=== PATIENT | male | born 1965 | race Two or more races ===

== ENCOUNTER 2019-02-02 09:29 | Day surgery (SDC) | payer OTHER ==
[2019-02-02] MEDS: SOD CHLORIDE 0.9% 1,000 ML IV (08:30)
[2019-02-02] MEDS ORDERED: CEFAZOLIN 1 GM INJ (09:39)
[2019-02-02] MEDS: TROPICAMIDE 1% 15 ML OPH OPER (09:54)
[2019-02-02] MEDS: CYCLOPENTOLATE/PHENYLEPH 2 ML OPH OPER (09:54)
[2019-02-02] MEDS: DICLOFENAC 0.1% 2.5 ML OPH OPER (09:54)
[2019-02-02] MEDS: MOXIFLOXACIN 0.5% 3 ML OPH OPER (09:54)
[2019-02-02] MEDS ORDERED: MIDAZOLAM 1 MG/ML 2 ML INJ (10:05)
[2019-02-02] MEDS ORDERED: PROPOFOL 20 ML (10:05)
[2019-02-02] MEDS ORDERED: FENTAnyl 50 MCG/ML VIAL (10:05)
[2019-02-02] MEDS ORDERED: ONDANSETRON 4 MG INJ IV (10:30)
[2019-02-02] MEDS ORDERED: OXYCODONE/ACETAMINOPHEN (5/325) TAB PO ×2 (10:30)
[2019-02-02] MEDS ORDERED: FENTAnyl 50 MCG/ML VIAL IV ×3 (10:30)
[2019-02-02] MEDS: DEXAMETHASONE 4 MG/ML 1 ML INJ (10:46)
[2019-02-02] MEDS: CARBACHOL 0.01% 1.5 ML OPH INJ (10:46)
[2019-02-02] MEDS: LIDOCAINE 4% (MPF) 5 ML INJ (10:46)
[2019-02-02] MEDS: TETRACAINE 0.5% 4 ML OPH (10:47)
[2019-02-02] MEDS: NA HYALURONATE/CHONDROITIN 0.5 ML SYG (10:47)
== END 2019-02-02 12:35 | disposition home or self-care (01) ==
LOC: SDS 09:29
DX: H26.8 Other specified cataract (principal); I10 Essential (primary) hypertension
CPT/HCPCS: 66984

== ENCOUNTER 2019-03-23 06:41 | Day surgery (SDC) | payer OTHER ==
[2019-03-23] MEDS ORDERED: SOD CHLORIDE 0.9% 1,000 ML IV (07:00)
[2019-03-23] MEDS: TROPICAMIDE 1% 15 ML OPH OPER (07:38)
[2019-03-23] MEDS: DICLOFENAC 0.1% 2.5 ML OPH OPER (07:38)
[2019-03-23] MEDS: MOXIFLOXACIN 0.5% 3 ML OPH OPER (07:39)
[2019-03-23] MEDS: CYCLOPENTOLATE/PHENYLEPH 2 ML OPH OPER (07:51)
[2019-03-23 08:17] LABS: HEMATOCRIT 39.9 % (42.0-52.0); HEMOGLOBIN 13.7 g/dl (14.0-18.0); INR 1.04; MEAN CORPUSCULAR HEMOGLOBIN 34.1 pg (29.0-33.0); MEAN CORPUSCULAR HGB CONC 34.3 g/dl (32.0-37.0); MEAN CORPUSCULAR VOLUME 99.3 fl (82.0-101.0); MEAN PLATELET VOLUME 10.9 fl (7.4-10.4); POSITIVE DIFF @See below; PROTIME 13.7 Sec (11.9-14.9); PT RATIO 1.1; RED BLOOD COUNT 4.02 10^6/ul (4.70-6.10); RED CELL DISTRIBUTION WIDTH 13.2 % (11.5-14.5)
[2019-03-23 08:18] LABS: PARTIAL THROMBOPLASTIN TIME 31.5 Sec (23.0-35.0)
[2019-03-23 08:21] LABS: HOLD TRANSMISSIONS 1
[2019-03-23 08:25] LABS: ADD MAN DIFF? YES
[2019-03-23] MEDS ORDERED: PROPOFOL 200 MG INJ (09:00)
[2019-03-23] MEDS ORDERED: LIDOCAINE 2% (SDV) 5 ML INJ (09:00)
[2019-03-23] MEDS ORDERED: LIDOCAINE 4% (MPF) 5 ML INJ (09:16)
[2019-03-23] MEDS: DEXAMETHASONE 4 MG/ML 1 ML INJ (09:16)
[2019-03-23] MEDS: CARBACHOL 0.01% 1.5 ML OPH INJ (09:16)
[2019-03-23] MEDS: CEFAZOLIN 1 GM INJ (09:16)
[2019-03-23] MEDS ORDERED: NA HYALURONATE/CHONDROITIN 0.5 ML SYG (09:16)
[2019-03-23] MEDS ORDERED: METOCLOPRAMIDE 10 MG INJ IV (09:30)
[2019-03-23] MEDS ORDERED: MEPERIDINE 25 MG INJ IV (09:30)
[2019-03-23] MEDS ORDERED: FENTAnyl 50 MCG/ML VIAL IV ×2 (09:30)
[2019-03-23] MEDS ORDERED: OXYCODONE/ACETAMINOPHEN (5/325) TAB PO (09:30)
[2019-03-23] MEDS ORDERED: DIPHENHYDRAMINE 50 MG INJ IV (09:30)
[2019-03-23] MEDS ORDERED: HYDROmorphONE 1 MG/5 ML IV SYRINGE IV ×2 (09:30)
[2019-03-23] MEDS ORDERED: ALBUTEROL 0.083% (NEB) 2.5 MG/3 ML AMP HHN (09:30)
[2019-03-23] MEDS ORDERED: ONDANSETRON 4 MG INJ IV (09:30)
[2019-03-23 09:53] LABS: PLATELET COUNT 112 10^3/UL (140-415)
== END 2019-03-23 12:13 | disposition home or self-care (01) ==
LOC: SDS 06:41
DX: H25.11 Age-related nuclear cataract, right eye (principal)
CPT/HCPCS: 66984; 85025; 85610; 85730